=== PATIENT | female | born 1975 | race Caucasian/White ===

== ENCOUNTER → 2016-12-23 | Outpatient (CLI) | payer SELFPAY | END | disposition home or self-care (01) | LOC: RAD.S 15:00 | DX: N63 Unspecified lump in breast (principal); Z98.82 Breast implant status ==

== ENCOUNTER → 2017-01-16 | Outpatient (CLI) | payer SELFPAY | END | disposition home or self-care (01) | LOC: RAD.S 01-15 13:30 | DX: N63 Unspecified lump in breast (principal) ==

== ENCOUNTER → 2017-02-25 | Outpatient (CLI) | payer SELFPAY | END | disposition home or self-care (01) | LOC: RAD.S 13:52 | DX: R51 Headache (principal); G91.9 Hydrocephalus, unspecified; R11.2 Nausea with vomiting, unspecified; Z98.2 Presence of cerebrospinal fluid drainage device ==